=== PATIENT | female | born 1945 | race Caucasian/White ===

== ENCOUNTER 2016-08-30 04:22 | Emergency (ER) | payer MEDICAID, MEDICARE ==
[2016-08-30] MEDS ORDERED: Ondansetron 4 MG Tab.DIS PO ONE (05:23)
[2016-08-30] MEDS ORDERED: HYDROmorphone 4 MG/ML Syringe SUBCUT ONE (05:25)
[2016-08-30] MEDS ORDERED: HYDROmorphone 2 MG/ML Syringe ONE (05:26)
[2016-08-30] MEDS ORDERED: Ondansetron 4 MG Tab.DIS ONE (05:26)
--- NOTE | 2016-08-30 05:35 | EDM.PDOC ---
ED HPI GENERAL MEDICAL PROBLEM - General Chief Complaint: General Stated Complaint: back pain Time Seen by Provider: 08/30/16 04:30 Source of Information: Reports: Patient History Limitations: Reports: No Limitations - History of Present Illness INITIAL COMMENTS - FREE TEXT/NARRATIVE: According to patient she claims that she woke up around 2 AM today with severe mid back pain. Pt point to the right midback with pain, but was spreading like a band across the back. Rates at 8/10 at that point.Pain did improve for few minutes and came back sharp again for few minutes and since then has been constant dull pain. Pain is asso with nausea, but no vomiting. No chest pain, chest tightness, wheezing or shortness of breath. Since the pain started, pt claims that she beckett voided 5-6 times in the past 2 hrs. No blood in the urine. No fever or chills. Pt has been help her with building a cabin, but she claims she has not done any heavy duty work yesterday, but was painting the day before.Also pt has been on anastozole, osetrogen receptor inhibitor for her breast cancer, and she does get spasms in the extremities which are sharp, but never had back pain. - Related Data Allergies Allergy/AdvReac Type Severity Reaction Status Date / Time No Known Allergies Allergy Verified 08/30/16 05:00 ED ROS GENERAL - Review of Systems Review Of Systems: See Below Constitutional: Denies: Fever, Chills, Weakness, Fatigue, Night Sweats, Diaphoresis HEENT: Denies: Rhinitis, Sinus Problem, Throat Pain, Throat Swelling Respiratory: Denies: Shortness of Breath, Wheezing, Pleuritic Chest Pain, Cough , Sputum Cardiovascular: Denies: Chest Pain, Lightheadedness GI/Abdominal: Reports: Abdominal Pain, Nausea. Denies: Constipation, Distension , Vomiting : Reports: Flank Pain, Frequency. Denies: Dysuria, Hematuria, Incontinence Musculoskeletal: Denies: Joint Pain, Joint Swelling Skin: Denies: Bruising, Pruritis, Rash Neurological: Denies: Confusion, Dizziness, Headache Psychiatric: Reports: Anxiety. Denies: Agitation ED EXAM, GENERAL - Physical Exam Exam: See Below Exam Limited By: No Limitations General Appearance: Alert, WD/WN, No Apparent Distress Eye Exam: Bilateral Eye: EOMI, PERRL Ears: Normal External Exam, Normal Canal, Hearing Grossly Normal, Normal TMs Ear Exam: Bilateral Ear: Auricle Normal, Canal Normal, TM normal Nose: Normal Inspection, Normal Mucosa, No Blood Throat/Mouth: Normal Inspection, Normal Lips, Normal Teeth, Normal Gums, Normal Oropharynx, Normal Voice, No Airway Compromise Head: Atraumatic, Normocephalic Neck: Normal Inspection, Supple, Non-Tender, Full Range of Motion Respiratory/Chest: No Respiratory Distress, Lungs Clear, Normal Breath Sounds, No Accessory Muscle Use, Chest Non-Tender Cardiovascular: Normal Peripheral Pulses, Regular Rate, Rhythm, No Edema, No Gallop, No JVD, No Murmur, No Rub GI/Abdominal: Normal Bowel Sounds, Soft, Non-Tender, No Organomegaly, No Distention, No Abnormal Bruit, No Mass Back Exam: Normal Inspection, Full Range of Motion, CVA Tenderness (R) Extremities: Normal Inspection, Normal Range of Motion, Non-Tender, Normal Capillary Refill, No Pedal Edema Neurological: Alert, Oriented, CN II-XII Intact, Normal Cognition, Normal Gait, Normal Reflexes, No Motor/Sensory Deficits EKG INTERPRETATION EKG Date: 08/30/16 Rhythm: NSR Rate (Beats/Min): 77 [place]: Normal P-Wave: Present QRS: Normal ST-T: Normal QT: Normal Course - Vital Signs Text/Narrative:: Pt's EKG is in NSR. Her CBC, CMP are within normal limits. Her UA is normal. Pt did receive dilaudid 1mg Im. Zofran 4mg PO. Pt's pain went down from 8-9/10 to zero and started to feel better. Apparently pt is feeling better as she knows that all her labs are normal. This could be back spasm of non specific origin. As her pain is down to zero and she feels better, I have discharged her home. Her discharge vitals are stable. Her blood pressure is 149/71mmhg.I have advised her to return if her pain return. Other pinto advised to followup with her primary care provider next few days. Last Recorded V/S: Last Vital Signs Temp 98.1 F 08/30/16 04:30 Pulse 77 08/30/16 04:30 Resp 18 08/30/16 04:30 BP 174/79 H 08/30/16 04:30 Pulse Ox 100 08/30/16 04:30 - Orders/Labs/Meds Orders: Active Orders 24 hr Category Date Time Status EKG Documentation Completion [RC] ASDIRECTED Care 08/30/16 05:09 Active Labs: Laboratory Tests 08/30/16 08/30/16 08/30/16 Range/Units 05:10 05:10 05:10 WBC 7.6 (4.0-11.0) K/uL RBC 5.15 (3.80-5.80) M/uL Hgb 14.9 (11.5-16.5) g/dL Hct 43.6 (37.0-47.0) % MCV 85 (76-96) fL MCH 28.9 (27.0-32.0) pg MCHC 34.2 (31.0-35.0) g/dL RDW 14.9 (11.0-16.0) % Plt Count 187 (150-500) K/uL MPV 10.8 H (6.0-10.0) fL Neut % (Auto) 77.8 H (45.0-70.0) % Lymph % (Auto) 14.4 L (20.0-40.0) % Emanuel % (Auto) 6.6 (3.0-10.0) % Eos % (Auto) 0.8 L (1.0-5.0) % Baso % (Auto) 0.4 (0.0-0.5) % Neut # (Auto) 5.89 (2.00-7.50) K/uL Lymph # (Auto) 1.09 L (1.50-4.00) K/uL Emanuel # (Auto) 0.50 (0.20-0.80) K/uL Eos # (Auto) 0.06 (0.04-0.40) K/uL Baso # (Auto) 0.03 (0.02-0.10) K/uL Sodium 143 (136-145) mmol/L Potassium 3.8 (3.5-5.1) mmol/L Chloride 107 (98-107) mmol/L Carbon Dioxide 22.1 (21.0-32.0) mmol/L Anion Gap 17.7 H (5.0-15.0) mmol/L BUN 15 (8-26) mg/dL Creatinine 0.88 (0.55-1.02) mg/dL Est Cr Clr Drug Dosing TNP Estimated GFR (MDRD) > 60 (>60) MLS/MIN BUN/Creatinine Ratio 17.0 (6-25) Glucose 155 H (74-100) mg/dL Calcium 9.4 (8.5-10.1) mg/dL Troponin I < 0.017 (0.000-0.060) ng/mL Urine Color Urine Appearance (CLEAR) Urine pH (5.0-8.0) Ur Specific [place] (1.003-1.030) Urine Protein (NEGATIVE) mg/dL Urine Glucose (UA) (NEGATIVE) mg/dL Urine Ketones (NEGATIVE) mg/dL Urine Occult Blood (NEGATIVE) Urine Nitrite (NEGATIVE) Urine Bilirubin (NEGATIVE) Urine Urobilinogen (0.2-1.0) E.U./dL Ur Leukocyte Esterase (NEGATIVE) Urine RBC /HPF Urine WBC /HPF Ur Squamous Epith Cells /HPF Urine Bacteria /HPF 08/30/16 Range/Units 05:30 WBC (4.0-11.0) K/uL RBC (3.80-5.80) M/uL Hgb (11.5-16.5) g/dL Hct (37.0-47.0) % MCV (76-96) fL MCH (27.0-32.0) pg MCHC (31.0-35.0) g/dL RDW (11.0-16.0) % Plt Count (150-500) K/uL MPV (6.0-10.0) fL Neut % (Auto) (45.0-70.0) % Lymph % (Auto) (20.0-40.0) % Emanuel % (Auto) (3.0-10.0) % Eos % (Auto) (1.0-5.0) % Baso % (Auto) (0.0-0.5) % Neut # (Auto) (2.00-7.50) K/uL Lymph # (Auto) (1.50-4.00) K/uL Emanuel # (Auto) (0.20-0.80) K/uL Eos # (Auto) (0.04-0.40) K/uL Baso # (Auto) (0.02-0.10) K/uL Sodium (136-145) mmol/L Potassium (3.5-5.1) mmol/L Chloride (98-107) mmol/L Carbon Dioxide (21.0-32.0) mmol/L Anion Gap (5.0-15.0) mmol/L BUN (8-26) mg/dL Creatinine (0.55-1.02) mg/dL Est Cr Clr Drug Dosing Estimated GFR (MDRD) (>60) MLS/MIN BUN/Creatinine Ratio (6-25) Glucose (74-100) mg/dL Calcium (8.5-10.1) mg/dL Troponin I (0.000-0.060) ng/mL Urine Color Yellow Urine Appearance Clear (CLEAR) Urine pH 8.5 H (5.0-8.0) Ur Specific [place] 1.020 (1.003-1.030) Urine Protein Negative (NEGATIVE) mg/dL Urine Glucose (UA) Negative (NEGATIVE) mg/dL Urine Ketones Negative (NEGATIVE) mg/dL Urine Occult Blood Negative (NEGATIVE) Urine Nitrite Negative (NEGATIVE) Urine Bilirubin Negative (NEGATIVE) Urine Urobilinogen 0.2 (0.2-1.0) E.U./dL Ur Leukocyte Esterase Negative (NEGATIVE) Urine RBC Not seen /HPF Urine WBC 0-5 H /HPF Ur Squamous Epith Cells Few /HPF Urine Bacteria Rare /HPF Meds: Medications Discontinued Medications Generic Name Dose Route Start Last Admin Trade Name Nikkoq PRN Reason Stop Dose Admin Hydromorphone HCl Confirm 08/30/16 05:26 08/30/16 05:36 Dilaudid Administered 08/30/16 05:27 Not Given Dose 2 mg .ROUTE .STK-MED ONE Hydromorphone HCl 1 mg 08/30/16 05:25 08/30/16 05:36 Dilaudid SUBCUT 08/30/16 05:26 1 mg ONETIME ONE Administration Ondansetron HCl 4 mg 08/30/16 05:23 08/30/16 05:31 Zofran Odt PO 08/30/16 05:24 4 mg ONETIME ONE Administration Ondansetron HCl Confirm 08/30/16 05:26 08/30/16 05:31 Zofran Odt Administered 08/30/16 05:27 Not Given Dose 4 mg .ROUTE .STK-MED ONE Departure - Departure Time of Disposition: 06:15 Disposition: Home, Self-Care 01 Condition: Fair Clinical Impression: Spasm of thoracic back muscle - Discharge Information Forms: ED Department Discharge - Problem List & Annotations (1) Spasm of thoracic back muscle SNOMED Code(s): 491311150989351 Code(s): M62.830 - MUSCLE SPASM OF BACK Status: Acute Current Visit: Yes - Problem List Review Problem List Initiated/Reviewed/Updated: Yes - My Orders Last 24 Hours: My Active Orders 08/30/16 05:09 EKG Documentation Completion [RC] ASDIRECTED - Assessment/Plan Last 24 Hours: My Active Orders 08/30/16 05:09 EKG Documentation Completion [RC] ASDIRECTED Assessment:: Mid back muscle spasm Plan: Pt's EKG is in NSR. Her CBC, CMP are within normal limits. Her UA is normal. Pt did receive dilaudid 1mg Im. Zofran 4mg PO. Pt's pain went down from 8-9/10 to zero and started to feel better. Apparently pt is feeling better as she knows that all her labs are normal. This could be back spasm of non specific origin. As her pain is down to zero and she feels better, I have discharged her home. Her discharge vitals are stable. Her blood pressure is 149/71mmhg.I have advised her to return if her pain return. Other pinto advised to followup with her primary care provider next few days.
== END 2016-08-30 06:24 | disposition home or self-care (01) ==
LOC: LB.ED 04:22
DX: M62.830 Muscle spasm of back (principal); R11.0 Nausea; R10.9 Unspecified abdominal pain; F41.9 Anxiety disorder, unspecified
CPT/HCPCS: 36415; 80048; 81001; 84484; 85025; 93005; A9270; J1170; 96372; 99283; 99283-25

== ENCOUNTER 2017-08-30 14:39 | Emergency (ER) | payer BC, MEDICARE ==
--- NOTE | 2017-08-31 00:28 | ER ---
HPI: A 72-year-old lady here with complaints of a brief episode of neck pain that started about an hour ago. She was at home, painting her deck. She has been doing this for a while. She suddenly developed a sharp stabbing pain in the left side of her neck just below the jaw. She states it lasted for a couple of minutes and then it went away. She did have a couple of other brief episodes after this, but only lasting a few seconds. She has not had any recent falls or injuries. She states that she has had similar symptoms, but not lasting so long. About 2 or 3 years ago, she had a few episodes of a sharp pain, but it only lasted for a few seconds or less. The patient denies feeling sick. She has not been running a fever and again no falls or injuries. OBJECTIVE: GENERAL APPEARANCE: The patient is awake and alert. No obvious distress. VITAL SIGNS: Reviewed, showing a blood pressure of 166/84, she is afebrile, pulse 76, O2 saturations 100%. Physical exam, ears; TMs are normal. Nares are patent. Oral mucous membranes moist. Tonsils not enlarged or injected. Pharynx not inflamed. NECK: Supple. The patient does have a subcutaneous nodule on the left side below the posterior jaw, but this has not enlarged or bothering her, it is deeper in. I cannot reproduce any pain with palpation in this area. She has full and unguarded range of motion of her head and neck at this time. LAB AND X-RAY: CBC and metabolic panel are unremarkable. CT of the soft tissues of the neck is also unremarkable except for the soft tissue lesion that I found on exam. DIAGNOSIS: Neuritis type pain involving the neck. TREATMENT PLAN: I advised the patient that her test results are normal. Further questioning reveals that she is on an estrogen melony medication and she has had these episodes since then. There could be a connection here. I advised the patient not to change anything with her medications until she talks to her primary provider and activity should be as tolerated. In the meantime, she is from the [facility] and plans on going home in a few days. Followup is with her primary provider when she gets home, sooner here on a p.r.n. basis. RENATA/JEANA /[id number]
--- NOTE | 2017-09-03 07:44 | CT ---
DATE OF SERVICE: 08/30/17 REASON FOR DATA: neck pain left side. No injury. UNENHANCED NECK CT: Multislice acquisition through the neck without IV contrast was performed. No priors. There is significant beam-hardening and streak artifact produced by the patient' s metallic dental work obscuring adjacent structures. The parotid glands are symmetric and appear normal. The submandibular glands are symmetric and appear normal. The thyroid gland is unremarkable. The pharynx, larynx, and airway appear unremarkable. No adenopathy. There is a 13 mm subcutaneous lesion located on the left lateral and superficial to the left sternocleidomastoid muscle. This probably represents a sebaceous cyst. No significant osseous abnormalities. There is mild degenerative disc disease at multiple levels. No other significant findings. IMPRESSION: Subcutaneous nodule on left as discussed above. This probably represents a sebaceous cyst. [id number] [facility]
== END 2017-08-30 16:35 | disposition home or self-care (01) ==
LOC: LB.ED 14:39
DX: M79.2 Neuralgia and neuritis, unspecified (principal); M54.2 Cervicalgia
CPT/HCPCS: 36415; 70490; 80053; 85025; 99283-25

== ENCOUNTER 2025-01-04 13:58 | Emergency (ER) | payer MEDICARE, MEDICAID ==
[2025-01-04] MEDS ORDERED: Sodium Chloride 0.9% 10 ML Syringe FLUSH PRN (15:10)
[2025-01-04] MEDS: Ondansetron 4 MG/2 ML SDV IVPUSH ONE (15:20)
[2025-01-04 15:52] LABS: MEAN PLATELET VOLUME 11.7 fL (6.0-10.0); PLATELET COUNT,PLT 189.0 K/uL (150-500); RED BLOOD CELL COUNT 4.88 M/uL (3.80-5.80); RED CELL DISTRIBUTION WIDTH 15.3 % (11.0-16.0); WHITE BLOOD CELL COUNT,WBC 10.0 K/uL (4.0-11.0)
[2025-01-04 16:06] LABS: BLOOD UREA NITROGEN,BUN 12.0 mg/dL (8-26); CARBON DIOXIDE,CO2 20.9 mmol/L (21.0-32.0); CHLORIDE,CL 106.0 mmol/L (98-107); CREATININE 0.78 mg/dL (0.55-1.02); EST CRCL DRUG DOSING (CG) 56.54 mL/min; ESTIMATED GFR 78.0 mL/min (>60); GLUCOSE RANDOM 188.0 mg/dL (74-100); PHOSPHORUS 2.7 mg/dL (2.5-4.9); POTASSIUM,K 3.7 mmol/L (3.5-5.1); SODIUM,NA 142.0 mmol/L (136-145); TROPONIN I HIGH SENSITIVITY 5.8 pg/ml (<=60.4)
[2025-01-04] MEDS: Magnesium Sulfat/D5W 1GM/100ML 1 GM in Premix Bag 1 BAG IV ONE (16:45)
[2025-01-04] MEDS: Orphenadrine 60 MG/2 ML Inj IM ONE (19:22)
== END 2025-01-04 21:17 | disposition home or self-care (01) ==
LOC: LB.ED 13:58
DX: M62.838 Other muscle spasm (principal); M79.2 Neuralgia and neuritis, unspecified; E83.42 Hypomagnesemia; I10 Essential (primary) hypertension; E78.00 Pure hypercholesterolemia, unspecified; Z91.040 Latex allergy status; Z79.01 Long term (current) use of anticoagulants; Z79.890 Hormone replacement therapy; Z79.899 Other long term (current) drug therapy
CPT/HCPCS: 36415; 80048; 83735; 84100; 84484; 85027; 93005; 96365; 96375; 99283; A9270; J2270; J2405; J3475

== ENCOUNTER 2025-01-04 21:45 | Emergency (ER) | payer MEDICARE, MEDICAID ==
[~2025-01-04 21:45] MED LIST: Sodium Chloride 0.9% 10 ML Syringe FLUSH PRN
[2025-01-05] MEDS: Iopamidol 612 MG/ML 100 ML Bottle IV SCH (01:55)
[2025-01-05] MEDS: Sodium Chloride 0.9% 50 ML SDV FLUSH ONE (01:55)
[2025-01-05] MEDS ORDERED: Sodium Chloride 0.9% 10 ML Syringe FLUSH PRN (02:17)
== END 2025-01-05 03:05 ==
LOC: LB.ED 21:45
DX: R55 Syncope and collapse (principal); I48.91 Unspecified atrial fibrillation; E83.42 Hypomagnesemia; I10 Essential (primary) hypertension; E78.00 Pure hypercholesterolemia, unspecified; Z91.040 Latex allergy status; Z79.890 Hormone replacement therapy; Z79.899 Other long term (current) drug therapy
CPT/HCPCS: 70496; 70498; 99285; A0425; A0428; Q9967